=== PATIENT | male | born 2000 | race Caucasian/White ===

== ENCOUNTER 2022-06-11 03:37 | Emergency (ER) | payer BC ==
[2022-06-11] MEDS ORDERED: Acetaminophen 500 MG Tab PO ONE (04:07)
[2022-06-11] MEDS ORDERED: Ondansetron 4 MG Tab.DIS PO ONE (04:07)
[2022-06-11 04:10] VITALS: BP 115/78; PULSE 113
[2022-06-11 04:45] LABS: CORONAVIRUS COVID-19 NAA NEGATIVE (NEGATIVE); RESPIRATORY SYNCYTIAL VIR NAA NEGATIVE (NEGATIVE)
[2022-06-11] MEDS ORDERED: Penicillin G Benzathine/Procaine 600-600 1.2 Millunits/2 ML Syringe IM ONE (04:54)
== END 2022-06-11 05:18 | disposition home or self-care (01) ==
LOC: DL.ED 03:37
DX: R11.0 Nausea (principal); J02.9 Acute pharyngitis, unspecified; Z90.89 Acquired absence of other organs; Z90.49 Acquired absence of other specified parts of digestive tract; Z20.822 Contact with and (suspected) exposure to COVID-19
CPT/HCPCS: 0241U; 87081; 87430; 96372; 99283; A9270-GY; J0558